=== PATIENT | male | born 1950 | race Hispanic/Latino ===

== ENCOUNTER 2021-05-18 00:26 | Emergency (ER) | payer MEDICARE ==
[2021-05-18 02:21] LABS: Bacteria,Urine 1+ /HPF (Negative); Bilirubin,Urine NEG (Negative); Blood,Urine NEG (Negative); Color,Urine Yellow (Yellow); Mucus,Urine 3+ /HPF
[2021-05-18 02:27] LABS: Amphetamine Screen,Urine PRESUMPTIVE NEGATIVE; Benzodiazepines Screen,Urine PRESUMPTIVE NEGATIVE; Cannabinoid Screen,Urine PRESUMPTIVE NEGATIVE; Cocaine Screen,Urine PRESUMPTIVE NEGATIVE; Methadone Screen,Urine PRESUMPTIVE NEGATIVE; Opiate Screen,Urine PRESUMPTIVE NEGATIVE
--- NOTE | 2021-05-18 03:00 | Emergency Department Report ---
ED Medical Clearance HPI - General Chief complaint: Psych Stated complaint: MEDICAL CLEARANCE Time Seen by Provider: 05/18/21 02:58 Source: patient, family Mode of arrival: Ambulatory Limitations: No Limitations - History of Present Illness Initial comments: Patient is a 70-year-old male who presents emergency room with complaints of needing medical clearance. Patient states that [facility] sent him here to be medically cleared. Patient states that he has been accepted to [facility]. Patient states he is going to look for depression voluntarily. Patient denies suicidal homicidal ideations. Patient denies hallucinations. Patient states they sent her here because he is off his blood pressure medications and he is not taking any medications for his diabetes. Patient states she does not require diabetic medications. Patient states he stopped taking his blood pressure medications 2 months ago because he thought it was causing his depression. Patient denies chest pain. Patient denies shortness of breath. Patient denies any physical complaints. Patient denies recent travel. Patient denies recent international travel. Patient denies exposure to the novel coronavirus. Patient denies sick contacts. Patient denies fever and chills. Patient denies cough. Patient denies diarrhea. Patient denies coming in contact with anybody with symptoms of the novel coronavirus. Complaint: medical clearance request -: Sudden Reason for Medical Clearance: psychiatric condition Place: home Alledged Intoxication: No Compliant with Home Medications: No Traumatic Symptoms: denies traumatic injury Associated Symptoms: denies other symptoms. denies: chest pain, shortness of breath, palpitations, diaphoresis, confusion, cough, fever/chills, headaches, anorexia, malaise, nausea/vomiting, rash, seizure, syncope, weakness Treatments Prior to Arrival: none Home medications: Previous Rx's Medication Instructions Recorded Last Taken Type Amlodipine Besylate [Norvasc] 2.5 mg PO BID #30 tablet 05/18/21 Unknown Rx Allergies/Adverse reactions: Allergies Allergy/AdvReac Type Severity Reaction Status Date / Time No Known Allergies Allergy Unverified 05/18/21 01:48 ED Review of Systems ROS: Stated complaint: MEDICAL CLEARANCE Other details as noted in HPI Constitutional: denies: chills, fever Eyes: denies: eye pain, eye discharge, vision change ENT: denies: ear pain, throat pain Respiratory: denies: cough, shortness of breath, wheezing Cardiovascular: denies: chest pain, palpitations Endocrine: no symptoms reported Gastrointestinal: denies: abdominal pain, nausea, diarrhea Genitourinary: denies: urgency, dysuria Musculoskeletal: denies: back pain, joint swelling, arthralgia Skin: denies: rash, lesions Neurological: denies: headache, weakness, paresthesias Psychiatric: as per HPI, depression. denies: anxiety, auditory hallucinations, visual hallucinations, homicidal thoughts, suicidal thoughts Hematological/Lymphatic: denies: easy bleeding, easy bruising ED Past Medical Hx - Past Medical History Previous Medical History?: Yes Hx Hypertension: Yes Hx Diabetes: Yes Hx Arthritis: Yes Hx Psychiatric Treatment: Yes (Depression) Additional medical history: High Cholesterol - Surgical History Past Surgical History?: No - Family History Family history: no significant - Social History Smoking Status: Never Smoker Substance Use Type: None - Medications Home Medications: Home Medications Medication Instructions Recorded Confirmed Last Taken Type Amlodipine Besylate [Norvasc] 2.5 mg PO BID #30 tablet 05/18/21 Unknown Rx ED Physical Exam - General Limitations: No Limitations General appearance: alert, in no apparent distress - Head Head exam: Present: atraumatic, normocephalic - Eye Eye exam: Present: normal appearance - ENT ENT exam: Present: mucous membranes moist - Neck Neck exam: Present: normal inspection - Respiratory Respiratory exam: Present: normal lung sounds bilaterally. Absent: respiratory distress - Cardiovascular Cardiovascular Exam: Present: regular rate, normal rhythm. Absent: systolic murmur, diastolic murmur, rubs, gallop - GI/Abdominal GI/Abdominal exam: Present: soft, normal bowel sounds - Rectal Rectal exam: Present: deferred - Extremities Exam Extremities exam: Present: normal inspection - Back Exam Back exam: Present: normal inspection - Neurological Exam Neurological exam: Present: alert, oriented X3 - Psychiatric Psychiatric exam: Present: normal affect, normal mood - Skin Skin exam: Present: warm, dry, intact, normal color. Absent: rash ED Course Vital Signs 05/18/21 01:45 Temperature 98.3 F Pulse Rate 75 Respiratory 18 Rate Blood Pressure 163/84 O2 Sat by Pulse 98 Oximetry - Reevaluation(s) Reevaluation #1: Patient's current blood pressure is 142/90. Patient denies pain. Patient denies headache. Patient denies blurry vision. Patient is medically cleared. I discussed all results and clinical findings with patient. I discussed plan of care with patient. Patient agrees with plan of care. Patient is stable for discharge. Patient will be discharged home. Patient given discharge instructions. Patient voiced understanding of discharge instructions. 05/18/21 03:53 ED Medical Decision Making - Lab Data Result diagrams: 05/18/21 01:58 05/18/21 01:58 - Medical Decision Making Patient is a 70-year-old male who presents emergency room with plaints of needing medical clearance to be admitted to the psychiatry facility. Patient has already been accepted to [facility] pending his medical clearance. Patient was sent here because he has diabetes medications and elevated blood pressure on the medication. Patient supposed to be taking blood pressure medication. Patient blood pressure initially was 160/90. Patient's repeat blood pressure 142/90. Patient was given 5 mg of Norvasc. Patient does not require treatment at this time for his diabetes and can follow-up as an outpatient. Patient is medically cleared. Patient is stable to be admitted to a psychiatry unit. Patient does not require inpatient services. Patient not require emergency medical services patient stable for discharge. Patient discharged, - Differential Diagnosis Medical clearance, depression, elevated blood pressure, diabetes. ED Disposition Clinical Impression: Medical clearance for psychiatric admission Hypertension Qualifiers: Hypertension type: primary hypertension Qualified Code(s): I10 - Essential (primary) hypertension Depression Qualifiers: Depression Type: unspecified Qualified Code(s): F32.9 - Major depressive disorder, single episode, unspecified Disposition: DC-01 TO HOME OR SELFCARE Is pt being admited?: No Does the pt Need Aspirin: No Condition: Stable Instructions: Hypertension (ED), Medical Screening Exam, Hypertension, Adult, [id number], Major Depressive Disorder, Adult, [id number], Managing Your Hypertension Additional Instructions: Patient is medically cleared and patient to be discharged from the ER and admit beryl to [facility]. Patient to follow-up with primary care in 2 to 3 days. Patient to monitor blood pressure at home. Patient to eat a low-salt diet. Patient to keep a blood pressure log. Patient to take all blood pressure log to all follow-up appointments. Patient to rest. Patient to increase water. Patient to take meds as directed. Patient to return to the ER if condition worsens, changes or new symptoms arise. Prescriptions: Amlodipine Besylate [Norvasc] 2.5 mg PO BID #30 tablet Referrals: PRIMARY CARE, [Primary Care Provider] - 2-3 Days Time of Disposition: 03:57
[2021-05-18 03:06] LABS: Basophils # (Auto) 0.1 K/mm3 (0.0-0.1); Eosinophils # (Auto) 0.2 K/mm3 (0.0-0.4); Eosinophils % (Auto) 3.2 % (0.0-4.3); Hemoglobin 16.6 gm/dl (11.8-15.2); Lymphocytes # (Auto) 1.9 K/mm3 (1.2-5.4); Lymphocytes % (Auto) 29.5 % (13.4-35.0); Mean Corpuscular HGB Conc 35 % (32-34); Mean Corpuscular Volume 91 fl (84-94); Monocytes # (Auto) 0.5 K/mm3 (0.0-0.8); Monocytes % (Auto) 8.5 % (0.0-7.3); Platelet Count 252 K/mm3 (140-440); Red Blood Count 5.29 M/mm3 (3.65-5.03); Red Cell Distribution Width 13.3 % (13.2-15.2)
[2021-05-18 03:33] LABS: BUN/Creatinine Ratio 13; Blood Urea Nitrogen 13 mg/dL (9-20); Calcium 9.1 mg/dL (8.4-10.2); Hemolysis Index 16
[2021-05-18 04:13] VITALS: BP 132/70
== END 2021-05-18 04:14 | disposition home or self-care (01) ==
LOC: ED 00:26
DX: F32.9 Major depressive disorder, single episode, unspecified (principal); I10 Essential (primary) hypertension; Z04.6 Encounter for general psychiatric examination, requested by authority; E11.9 Type 2 diabetes mellitus without complications; M19.91 Primary osteoarthritis, unspecified site; Z79.899 Other long term (current) drug therapy
CPT/HCPCS: 36415; 80048; 80307; 80320; 81001; 85025; 87086; G0480